=== PATIENT | male | born 1950 | race Caucasian/White ===

== ENCOUNTER 2018-10-28 19:42 | Inpatient (IN) | payer MEDICARE, OTHER ==
--- NOTE | 2018-10-28 20:10 | ED ---
Psychiatric Complaint - HPI Summary HPI Summary: This patient is a 68 year old M presenting to ED with a chief complaint of SI since today. Patient states his cousin 1 week ago. He reports wanting to jump in front of a bus. Patient lives in [place] and is here visiting. PMHx of DM, HTN, HLD on Metformin, which he forgot to bring to [place]. The patient rates the pain 0/10 in severity. Symptoms aggravated by recent stress of in family. Symptoms alleviated by nothing. Patient denies fever. - History Of Current Complaint Chief Complaint: EDSuicidal Time Seen by Provider: 10/28/18 20:03 Hx Obtained From: Patient Onset/Duration: Lasting Days - Since today, Still Present Timing: Constant Severity Initially: Mild Severity Currently: Mild Aggravating Factor(s): Recent Stress - in family Alleviating Factor(s): Nothing Associated Signs And Symptoms: Positive: Negative - Fever Has Suicidal: Reports: Thoughts, With A Plan - Jump in front of bus Recent Stressor(s): in family - Allergies/Home Medications Allergies/Adverse Reactions: Allergies Allergy/AdvReac Type Severity Reaction Status Date / Time fluphenazine Allergy Hives Verified 10/29/18 08:38 haloperidol Allergy Hives Verified 10/29/18 08:38 Home Medications: Home Medications Atorvastatin Calcium [Lipitor] 20 mg PO DAILY 10/29/18 [History Confirmed ] Benztropine TAB* [Cogentin TAB*] 1 mg PO BID 10/29/18 [History Confirmed ] Doxazosin TAB* [Cardura TAB*] 4 mg PO DAILY 10/29/18 [History Confirmed 10/29/18 ] Glimepiride 2 mg PO DAILY 10/29/18 [History Confirmed 10/29/18] OLANZapine [Zyprexa Zydis] 5 mg PO DAILY 10/29/18 [History Confirmed 10/29/18] Pantoprazole TAB * [Protonix TAB*] 40 mg PO DAILY 10/29/18 [History Confirmed ] Pioglitazone HCl 30 mg PO DAILY 10/29/18 [History Confirmed 10/29/18] Trazodone HCl 100 mg PO BEDTIME 10/29/18 [History Confirmed 10/29/18] risperiDONE [Risperidone] 3 mg PO DAILY 10/29/18 [History Confirmed 10/29/18] PMH/Surg Hx/FS Hx/Imm Hx Endocrine/Hematology History: Reports: Hx Diabetes - on metformin Cardiovascular History: Reports: Hx Hypercholesterolemia - on medication, Hx Hypertension - on medication Musculoskeletal History: Reports: Hx Back Problems - laminectomy Sensory History: Reports: Hx Contacts or Glasses - glasses for reading Denies: Hx Deafness Opthamlomology History: Reports: Hx Contacts or Glasses - glasses for reading Psychiatric History: Reports: Hx Depression, Hx Post Traumatic Stress Disorder, Hx Inpatient Treatment, Hx Schizophrenia, Hx Suicide Attempt Denies: Hx Eating Disorder, Hx of Violent Episodes Against Others - Surgical History Surgery Procedure, Year, and Place: back surgery 1972. tonsillectomy 1952 Infectious Disease History: No Infectious Disease History: Denies: Traveled Outside the [place] in Last 30 Days - Family History Known Family History: Positive: Non-Contributory - Social History Alcohol Use: None Hx Substance Use: No Substance Use Type: Reports: None Hx Tobacco Use: No Smoking Status (MU): Never Smoked Tobacco Review of Systems Negative: Fever Psychological: Other - SI All Other Systems Reviewed And Are Negative: Yes Physical Exam - Summary Physical Exam Summary: Appearance: Well-appearing, Well-nourished, lying in bed comfortable Skin: Warm, dry, no obvious rash Eyes: sclera anicteric, no conjunctival pallor ENT: mucous membranes moist Neck: deferred Respiratory: No signs of respiratory distress Cardiovascular: Appears well perfused, pulses are nml Abdomen: deferred Musculoskeletal: Moving all 4 extremities without obvious discomfort Neurological: Awake and alert, mentation is normal, speech is fluent and appropriate Psychiatric: affect is normal, does not appear anxious or depressed Triage Information Reviewed: Yes Vital Signs On Initial Exam: Initial Vitals Temp Pulse Resp BP Pulse Ox 97.5 F 75 18 161/84 97 10/28/18 19:48 10/28/18 19:48 10/28/18 19:48 10/28/18 19:48 10/28/18 19:48 Vital Signs Reviewed: Yes Diagnostics - Vital Signs Vital Signs Temp Pulse Resp BP Pulse Ox 10/28/18 19:48 97.5 F 75 18 161/84 97 - Laboratory Result Diagrams: 10/28/18 20:24 10/28/18 20:24 Lab Statement: Any lab studies that have been ordered have been reviewed, and results considered in the medical decision making process. - EKG 2028 Cardiac Rate: NL - 75 BPM EKG Rhythm: Sinus Rhythm ST Segment: Normal Ectopy: None Summary of EKG Findings: NSR at 75 BPM, P waves, QRS complex, and T waves are within normal limits, T waves and intervals are normal, no ischemic changes. This is a normal EKG. Course/Dx - Course Course Of Treatment: This patient is a 68 year old M presenting to ED with a chief complaint of SI since today. EKG at 2028 revealed NSR at 75 BPM, P waves, QRS complex, and T waves are within normal limits, T waves and intervals are normal, no ischemic changes. This is a normal EKG. Blood work revealed Hgb 13.3 , Hct 39, MPV 7.2, glucose 182. UA revealed glucose 3+. Patient is medically cleared for MHE at 2250. As patient has VA benefits, patient will be voluntarily transferred to a [facility] hospital with dx of mood disorder NOS by Dr. Herrera. Patient will be signed out to Dr. Casper Quinn from Dr. Casper العلي at 0700 on 10/29/18 at shift change pending transfer logistics. - Differential Dx/Clinical Impression Provider Diagnosis: Mood disorder Discharge - Sign-Out/Discharge Documenting (check all that apply): Sign-Out Patient Signing out patient TO: Casper Quinn Patient Received Moderate/Deep Sedation with Procedure: No - Discharge Plan Condition: Stable Disposition: PSYCHIATRIC FACILITY-[facility] - Billing Disposition and Condition Condition: STABLE Disposition: Psychiatric Facility [facility] - Attestation Statements Document Initiated by Scribe: Yes Documenting Scribe: Herrera De La Garza Provider For Whom Sergio is Documenting (Include Credential): MD Sergio Vigil Attestation: Herrera Ramos, scribed for Casper العلي MD on 10/30/18 at 0532. Scribe Documentation Reviewed: Yes Provider Attestation: The documentation as recorded by the Herrera lange accurately reflects the service I personally performed and the decisions made by , Casper العلي MD Status of Scribe Document: Viewed
[2018-10-28 20:34] LABS: ABS Eosinophils 0.2 10^3/ul (0-0.6); ABS Lymphocytes 1.6 10^3/ul (1.0-4.8); ABS Monocytes 0.6 10^3/ul (0-0.8); Eosinophil % 2.9 %; Hematocrit 39 % (42-52); Hemoglobin 13.3 g/dL (14.0-18.0); Lymphocyte % 18.4 %; Mean Corpuscular HGB Conc 35 g/dL (31-36); Mean Corpuscular Hemoglobin 29 pg (27-31); Mean Corpuscular Volume 83 fL (80-94); Mean Platelet Volume 7.2 fL (7.4-10.4); Platelet Count 237 10^3/uL (150-450); Red Blood Count 4.64 10^6 /uL (4.18-5.48); Red Cell Distribution Width 14 % (10-15); White Blood Count 8.5 10^3/uL (3.5-10.8)
[2018-10-28 20:51] LABS: ALT 48 U/L (7-52); AST 17 U/L (13-39); Albumin 4.5 g/dL (3.2-5.2); Albumin/Globulin Ratio 1.6 (1-3); Alkaline Phosphatase 67 U/L (34-104); Anion Gap 9 mmol/L (2-11); BUN/Creatinine Ratio 15.7 (8-20); Blood Urea Nitrogen 11 mg/dL (6-24); CO2 Carbon Dioxide 23 mmol/L (22-32); Chloride 105 mmol/L (101-111); EGFR African American 135.3 (>60); EGFR Non-African American 111.8 (>60); Globulin 2.8 g/dL (2-4); Glucose 182 mg/dL (70-100); Potassium 3.7 mmol/L (3.5-5.0); Sodium 137 mmol/L (135-145); Total Protein 7.3 g/dL (6.4-8.9)
[2018-10-28 20:52] LABS: Acetaminophen < 15 mcg/mL; Alcohol < 10 mg/dL (<10); Salicylate < 2.50 mg/dL (<30)
[2018-10-28 21:07] LABS: TSH (Thyroid Stimulating Horm) 3.08 mcIU/mL (0.34-5.60)
[2018-10-28 21:38] LABS: Urine Appearance Clear; Urine Bilirubin Negative (Negative); Urine Blood Negative (Negative); Urine Color Yellow; Urine Glucose 3+(>=500 mg/dL) (Negative); Urine Ketones Negative (Negative); Urine Nitrite Negative (Negative); Urine Protein Negative (Negative); Urine Specific Gravity 1.018 (1.010-1.030); Urine Urobilinogen Negative (Negative)
[2018-10-28 21:48] LABS: Urine Benzodiazepine Screen None Detected (None Detect); Urine Opiates Screen None Detected (None Detect)
[2018-10-29] MEDS ORDERED: LORazepam TAB(*) 1 MG PO ONE ×2 (00:01→08:56)
--- NOTE | 2018-10-29 07:11 | ED ---
Progress - Progress Note Progress Note: Pt is a signout from Dr. العلي at 0700 on 10/29/18 pending mental health transfer. The [facility] declined the pt so he will be admitted to [facility] with 2PC and dx of mood disorder NOS. - Consult/PCP Time Called: 22:50 Course/Dx - Course Course Of Treatment: Pt is a signout from Dr. العلي at 0700 on 10/29/18 pending mental health transfer. As of 144, the [facility] declined the pt so he will be admitted to [facility] with 2PC and dx of mood disorder NOS. - Diagnoses Provider Diagnoses: Mood disorder Discharge - Sign-Out/Discharge Documenting (check all that apply): Patient Departure, Receiving Sign-Out Receiving patient FROM: Casper العلي - Discharge Plan Condition: Stable Disposition: PSYCHIATRIC FACILITY-[facility] - Billing Disposition and Condition Condition: STABLE Disposition: Psychiatric Facility [facility] - Attestation Statements Document Initiated by Scribe: Yes Documenting Scribe: Radha Klein Provider For Whom Salomonibe is Documenting (Include Credential): Casper Quinn MD. Scribe Attestation: Radha Ramos, mary kateed for Casper Quinn MD. on 10/29/18 at 1742. Scribe Documentation Reviewed: Yes Provider Attestation: The documentation as recorded by the Radha lange accurately reflects the service I personally performed and the decisions made by Casper beavers MD. Status of Scribe Document: Viewed
[2018-10-29] MEDS ORDERED: Al Hydrox/Mg Hydrox/Simet LIQ* 30 ML UDC PO PRN (16:21)
[2018-10-29] MEDS: Acetaminophen TAB* 325 MG PO PRN (19:46)
[2018-10-29] MEDS: traZODone TAB* 100 MG PO SCH (20:11)
[2018-10-29] MEDS: Benztropine TAB* 1 MG PO SCH (20:12)
[2018-10-30] MEDS ORDERED: risperiDONE TAB* 1 MG ONE (02:23)
[2018-10-30] MEDS ORDERED: LORazepam TAB(*) 1 MG ONE (02:23)
[2018-10-30] MEDS ORDERED: LORazepam TAB(*) 1 MG PO ONE (03:00)
[2018-10-30] MEDS ORDERED: risperiDONE TAB* 1 MG PO ONE (03:00)
[2018-10-30] MEDS: Vitamin THERAPEUTIC TAB PO SCH (10:16)
[2018-10-30] MEDS: Doxazosin TAB* 2 MG PO SCH (10:16)
[2018-10-30] MEDS: Pantoprazole TAB * 40 MG TAB PO SCH (10:16)
[2018-10-30] MEDS: risperiDONE TAB* 2 MG PO SCH (10:16)
[2018-10-30] MEDS: metFORMIN* 500 MG TAB PO SCH (10:16)
[2018-10-30] MEDS: OLANzapine TAB*ODT* 5 MG PO SCH (10:17)
[2018-10-30] MEDS: Benztropine TAB* 1 MG PO SCH ×2 (10:17→20:33)
[2018-10-30] MEDS: CMC:Glimepiride (NF) 2 MG TAB PO SCH (10:17)
[2018-10-30] MEDS: Atorvastatin* 20 MG TAB PO SCH (10:17)
[2018-10-30] MEDS: Lisinopril TAB* 10 MG PO SCH (10:17)
[2018-10-30] MEDS: Pioglitazone TAB* 30 MG PO SCH (10:18)
[2018-10-30] MEDS: risperiDONE TAB* 3 MG PO SCH (13:06)
[2018-10-30] MEDS: Acetaminophen TAB* 325 MG PO PRN ×2 (18:32→23:45)
--- NOTE | 2018-10-30 20:06 | HP ---
PSYCHIATRIC HISTORY AND PHYSICAL: DATE OF ADMISSION: 10/29/18 JUSTIFICATION FOR ADMISSION: The patient is in need of 24-hour supervision and care secondary to suicidal ideations. CHIEF COMPLAINT: "The VA is not doing nothing for me." HISTORY OF PRESENT ILLNESS: The patient is a 68-year-old single [facility] [place] , who is [place] through the [place], who arrives all the way from his rented apartment in [place], [place] which is close to [place], seeking hospitalization for what he claims to be auditory hallucinations telling him to hang himself. The patient relates that he gets his services through the [facility] and that he is supposed to have visiting nurses and packed medication delivery services, but he claims that the VA is not doing anything for him. He states that he is fed up living in [place] and he wants new housing in the [facility]. He states that in order to get himself here he took a bus. When he was in the emergency room, we attempted several times to get him transferred [facility] a [facility]; however, all 3 local [facility] responded by saying that they would not accept the patient because he has a history of overutilizing inpatient resources. This was corroborated in the most recent discharge summary for Mr. Fulton which was dated 08/23/14 by psychiatrist, Dr. Job Lacey, who indicated at that time that Mr. Fulton had been going from hospital to hospital, seeking attention. He felt that the patient warranted a diagnosis of malingering. At this time, given the patient's desire for housing, the patient's motivation appears to be secondary gain. PAST PSYCHIATRIC HISTORY: The patient has a history of schizophrenia since 1968 when he was in the [employer]. He is 100% service connected for both PTSD and schizophrenia. He states that he experienced combat trauma while serving in [place]. He does report 2 suicide attempts in the past, one was 8 years ago by cutting himself and one was 15 years ago by overdosing on Demerol. In the past , he has taken Seroquel, Risperdal, and Risperdal Consta. Most recently, it appears that his medications include Risperdal, olanzapine, and trazodone. He denies ownership of firearms. PAST SUBSTANCE ABUSE HISTORY: He states that he is a nonsmoker. He does not drink or use illicit drugs. PAST MEDICAL HISTORY: Significant for high blood pressure, diabetes, hypertension, hyperlipidemia, gastroesophageal reflux disorder. CURRENT MEDICATIONS: Include: 1. Risperdal 5 mg daily. 2. Glucophage 500 mg daily. 3. Trazodone 100 mg nightly. 4. Pioglitazone 30 mg daily. 5. Protonix 40 mg daily. 6. Zyprexa 5 mg daily. 7. Lisinopril 20 mg daily. 8. Glimepiride 2 mg daily. 9. Doxazosin 4 mg daily. 10. Cogentin 1 mg b.i.d. 11. Lipitor 20 mg daily. ALLERGIES: Include FLUPHENAZINE and HALOPERIDOL. FAMILY HISTORY: His mother had an unspecified mental illness and committed suicide when the patient was 17 years old. He has no further family contact. SOCIAL HISTORY: The patient was born and raised in the [facility]. He joined the [employer] at age 17 and dropped out of high school, but got his GED. He apparently had his first break of psychosis when he was in the service. He has never been . He does not have any children. His parents are and he lives alone in an apartment in [place], which is [place] [facility]. REVIEW OF SYSTEMS: The patient denies headache or double vision. He denies cough, sore throat, chest pain, difficulty breathing. Denies abdominal pain, nausea, vomiting, diarrhea, or constipation. He denies difficulty ambulating, enlarged lymph nodes, fevers, rashes, or changes in weight. PHYSICAL EXAMINATION VITAL SIGNS: Blood pressure 150/93, heart rate 89, respiratory rate 18, temperature is 97.4, oxygen saturations are 96% on room air. HEENT: Head is normocephalic, atraumatic. NECK: Supple. CHEST: Clear to auscultation bilaterally. CARDIAC: Exam reveals normal heart sounds. ABDOMEN: Soft and nontender. MUSCULOSKELETAL: Exam reveals no sign of edema. NEUROLOGICAL: He is grossly intact with no focal deficits. SKIN: Warm and dry. DIAGNOSTIC STUDIES/LAB DATA: Labs: CBC demonstrates anemia with decreased hemoglobin at 13.3, decreased hematocrit at 39. Complete metabolic panel demonstrates glucose which is elevated at 182. TSH normal at 3.08. Urinalysis reveals 3+ glucose. Urine drug screen is negative for all substances tested. MENTAL STATUS EXAM: The patient is an aging, overweight white-haired male who is in scrubs. He is poorly groomed with food debris on his chin. He is overweight, hard of hearing, and has difficulty seeing and stares with squinted eyes at this observer. Speech has a loud tone. Mood appears to be euthymic with a full affect. Thought process, linear and goal directed. Thought content is significant for his desire to seek new housing through the hospital. He is currently denying suicidal or homicidal ideations. He denies auditory or visual hallucinations at this time. Cognitively, he is awake and alert with what would appear to be a low-average intellect by virtue of his simplistic vocabulary. DIAGNOSES: [place] I: 1. Factitious disorder. 2. Schizophrenia. 3. Posttraumatic stress disorder. [place] II: Deferred. IMPRESSION: The patient is a 68-year-old single, never , white, [employer] [place] with a history of schizophrenia and posttraumatic stress disorder, who has apparently traveled by bus to our area to seek fdc and new housing. He was claiming suicidal ideations and auditory hallucinations, but we do not see him responding to internal stimuli and his affect is bright and full. It would appear that this is a factitious disorder or perhaps malingering given the secondary gain that he is seeking by receiving housing in the new community. PLAN: The patient is admitted to the adult behavioral health unit, where he was placed on q.15-minute checks for his own safety. We will [facility] [place] for further collateral information. I think it is in his interests to return to the [facility] where he has all his services, and we will attempt to confirm this through the [facility] system. We hope to keep this hospitalization brief as it appears that the patient is trying to take advantage of inappropriate inpatient hospitalization to get other needs met. [id number]/[facility] #: [id number] GARY
[2018-10-30] MEDS: traZODone TAB* 100 MG PO SCH (20:33)
[2018-10-31] MEDS: Doxazosin TAB* 2 MG PO SCH (08:47)
[2018-10-31] MEDS: Lisinopril TAB* 10 MG PO SCH (08:48)
[2018-10-31] MEDS: Atorvastatin* 20 MG TAB PO SCH (08:48)
[2018-10-31] MEDS: OLANzapine TAB*ODT* 5 MG PO SCH (08:49)
[2018-10-31] MEDS: metFORMIN* 500 MG TAB PO SCH (08:49)
[2018-10-31] MEDS: risperiDONE TAB* 2 MG PO SCH (08:49)
[2018-10-31] MEDS: Pantoprazole TAB * 40 MG TAB PO SCH (08:49)
[2018-10-31] MEDS: Vitamin THERAPEUTIC TAB PO SCH (08:49)
[2018-10-31] MEDS: Pioglitazone TAB* 30 MG PO SCH (08:50)
[2018-10-31] MEDS: Benztropine TAB* 1 MG PO SCH ×2 (08:50→20:48)
[2018-10-31] MEDS: CMC:Glimepiride (NF) 2 MG TAB PO SCH (08:50)
--- NOTE | 2018-10-31 11:13 | PN ---
Subjective - Subjective Date of Service: 10/31/18 Service Type: [id number] Hosp care 15 min low complexity Subjective: Daysi continues to clamor for help with housing. "Nobody is helping me here. Just discharge me and send me to the detention. They'll help me find a place." It is explained to Mr. Olivera that the [place] has not returned our phone calls to coordinate care and further services and that it would not be appropriate to discharge him until we have worked out a safe discharge plan. "Those people weren't doing anything for me. They didn't come to the house like they said they would. I didn't have any medicine. I didn't have any food. I'm through with them people." He denies SI but states that he is still hearing voices. He does not appear to be responding to internal stimuli. Objective - General Observations Appearance: Neat Appears Stated Age: Yes Stature: Overweight Posture: WNL Eye Contact: Average Behavior/Activity: WNL - Interaction Observations Attitude Towards Examiner: Cooperative Stated Mood: Euthymic Affect: Full Speech Pattern/Tone: Appropriate Thought Process: Goal Directed Perception: WNL Thought Content: WNL Hallucination Type: Auditory Delusion Type: None - Cognitive Function Orientation: A&O x 4 Level of Consciousness: Awake, Alert, Appropriate Cognition: WNL Estimated Intelligence: Borderline Range Insight: WNL Judgment Within Normal Limits: Yes - Medication Compliance Cooperative with Inpatient Medication Regimen: Yes - Group Participation Participates in Group Activities: Yes Assessment - Assessment Merits Inpatient Hospitalization: Pending Safe DC Plan Inpatient DSM-V Dx: Z76.5 Clinical Impression: 68 y.o. single, never-, white male [place] , 100% service connected for schizophrenia and PTSD who took a bus to [place] from his home [place], [place] seeking voluntary hospitalization for command AH reportedly telling him to kill himself. The patient subsequently admits that his main motivation for coming here is to procure new housing here in the [place] area. BSU: Problem List - Patient Problems (1) Malingering Current Visit: Yes Status: Acute Priority: Medium Code(s): Z76.5 - MALINGERER [CONSCIOUS SIMULATION] SNOMED Code(s): 164595143 Plan - Plan Treatment Plan: Name: DAYSI OLIVERA Birthdate: 1950 [id number] The patient has been resumed on his outpatient regimen, including risperidone 5mg PO qam and trazodone 100mg PO qhs. We await collateral contact with the [facility] system to coordinate discharge planning. Continued Medication Management: Continue Outpt Medication Medications: Current Medications Acetaminophen (Tylenol Tab*) 650 mg PO Q4H PRN PRN Reason: PAIN or TEMP > 101 F Last Admin: 10/30/18 23:45 Dose: 650 mg Al Hydrox/Mg Hydrox/Simethicone (Maalox Plus*) 30 ml PO Q4H PRN PRN Reason: INDIGESTION Atorvastatin Calcium (Lipitor*) 20 mg PO DAILY [facility] Last Admin: 10/31/18 08:48 Dose: 20 mg Benztropine Mesylate (Cogentin Tab*) 1 mg PO BID [facility] Last Admin: 10/31/18 08:50 Dose: 1 mg Doxazosin Mesylate (Cardura Tab*) 4 mg PO DAILY [facility] Last Admin: 10/31/18 08:47 Dose: 4 mg Glimepiride (Glimepiride (Nf)) 2 mg PO DAILY [facility] Last Admin: 10/31/18 08:50 Dose: 2 mg Lisinopril (Prinivil Tab*) 20 mg PO DAILY [facility] Last Admin: 10/31/18 08:48 Dose: 20 mg Metformin HCl (Glucophage*) 500 mg PO DAILY [facility] Last Admin: 10/31/18 08:49 Dose: 500 mg Multivitamins (Theragran Tab*) 1 tab PO DAILY [facility] Last Admin: 10/31/18 08:49 Dose: 1 tab Olanzapine (Zyprexa * Tab Odt) 5 mg PO DAILY [facility] Last Admin: 10/31/18 08:49 Dose: 5 mg Pantoprazole Sodium (Protonix Tab*) 40 mg PO DAILY [facility] Last Admin: 10/31/18 08:49 Dose: 40 mg Pioglitazone HCl (Actos Tab*) 30 mg PO DAILY [facility] Last Admin: 10/31/18 08:50 Dose: 30 mg Risperidone (Risperdal*) 2 mg PO DAILY [facility] Last Admin: 10/31/18 08:49 Dose: 2 mg Risperidone (Risperdal*) 3 mg PO 1200 [facility] Last Admin: 10/30/18 13:06 Dose: 3 mg Trazodone HCl (Desyrel Tab*) 100 mg PO BEDTIME [facility] Last Admin: 10/30/18 20:33 Dose: 100 mg - Discharge Plan Discharge Plan: Outpatient Follow Up Outpatient Program: [facility]
[2018-10-31] MEDS: risperiDONE TAB* 3 MG PO SCH (14:13)
[2018-10-31] MEDS: traZODone TAB* 100 MG PO SCH (20:48)
[2018-10-31] MEDS: Acetaminophen TAB* 325 MG PO PRN (23:38)
[2018-11-01 08:47] VITALS: BP 156/85
[2018-11-01] MEDS: Doxazosin TAB* 2 MG PO SCH (08:47)
[2018-11-01] MEDS: Pioglitazone TAB* 30 MG PO SCH (08:47)
[2018-11-01] MEDS: CMC:Glimepiride (NF) 2 MG TAB PO SCH (08:47)
[2018-11-01] MEDS: Benztropine TAB* 1 MG PO SCH (08:51)
[2018-11-01] MEDS: metFORMIN* 500 MG TAB PO SCH (08:51)
[2018-11-01] MEDS: risperiDONE TAB* 2 MG PO SCH (08:51)
[2018-11-01] MEDS: Vitamin THERAPEUTIC TAB PO SCH (08:51)
[2018-11-01] MEDS: Pantoprazole TAB * 40 MG TAB PO SCH (08:51)
[2018-11-01] MEDS: Atorvastatin* 20 MG TAB PO SCH (08:52)
[2018-11-01] MEDS: Lisinopril TAB* 10 MG PO SCH (08:52)
[2018-11-01] MEDS: OLANzapine TAB*ODT* 5 MG PO SCH (08:53)
[2018-11-01] MEDS: risperiDONE TAB* 3 MG PO SCH (11:39)
--- NOTE | 2018-11-01 13:00 | DS ---
DISCHARGE SUMMARY: DATE OF ADMISSION: 10/29/18 DATE OF DISCHARGE: 11/01/18 DISCHARGE DIAGNOSES: Charlotte I: Malingering, schizophrenia by history, posttraumatic stress disorder by history. Charlotte II: Deferred. CONDITION AT THE TIME OF DISCHARGE: Stable. The patient is denying suicidal ideations and he is agr eeable to taking a bus home to his apartment in [place], [place]. He is aware that [facility] for both primary and psychiatric care at the [facility] established for , 11/07/18, and he expresses a willingness to follow up with this. He is requesting that his me dications be sent to the [facility] in [place], [place]. While here, he has been safe on all checks and we have not observed him responding to internal stimuli. MENTAL STATUS EXAM AT THE TIME OF DISCHARGE: The patient is an aging overweight white-haired Caucasi an male who is dressed in street clothing. He is fairly well- groomed at this time. He is hard of h earing and has difficulty seeing, staring with squinted eyes at this observer. Speech has a loud ton e. Mood appears to be euthymic with full affect. Thought process is linear and goal directed. Thou ght content is significant for his desire to be discharged from the hospital. He is currently denyin g suicidal or homicidal ideations. He denies auditory or visual hallucinations. Cognitively, he is awake and alert with what would appear to be a low-average intellect by virtue of his simplistic voca bulary. DISCHARGE INSTRUCTIONS: To the patient are as follows: Part A: Medications: The patient is on: 1. Trazodone 100 mg at bedtime. 2. Risperdal 2 mg in the morning and 3 mg at noon. 3. Metformin 500 mg daily. 4. Actos 30 mg daily. 5. Protonix 40 mg daily. 6. Olanzapine 5 mg daily. 7. Lisinopril 20 mg p.o. daily. 8. Glimepiride 2 mg p.o. daily. 9. Doxazosin 4 mg p.o. daily. 10. Cogentin 1 mg p.o. b.i.d. 11. Lipitor 20 mg p.o. daily. Please note that the patient is on more than 1 antipsychotic medication including risperidone and beck nzapine. This is due to the fact that the patient has documented history of at least 3 failed trials of antipsychotic monotherapy including past monotherapy experiences with fluphenazine, haloperidol, risperidone, and olanzapine. Part B: Diet is a diabetic diet. Part C: Activities as tolerated. The patient is a nonsmoker. There are no laboratory or diagnostic studies pending at the time of discharge. Part D: Follow up care. The patient will follow up with his psychiatrist, Dr. George, at the [facility]. This appointment is for 11/07/18, at 10:30 a.m. Later that afternoon, he has an appointment with his primary care provider at the same clinic. Part E: Substance abuse followup is nonapplicable. Part F: Disposition: The patient is being discharged to his own apartment in [facility]. He is familiar with the bus system and is being sent to the bus stop on [address] in [facility]. HOSPITAL COURSE: Part A: Reason for Admission: The patient is a 68-year-old, single, [place] who [facility] for history of schizophrenia and PTSD, arriving all t he way from his rented apartment in [place], [place], which is close to [place], seeking ho spitalization for what he claimed to be auditory hallucinations telling him to hang himself. The pat ient relates that he gets his services through the [facility] and that he is supposed to have visiti ng nursing as well as packed medication delivery services. However, he claims that the [facility] is not doi [facility] anything for him. He states that he is set up with living in [place] and wants new housing in the [facility]. He states that in order to get himself here, he took a bus from his own communi ty. When he was in the emergency room, we attempted several times to get him transferred to a [facility]; however, all 3 [facility] responded by saying that they would not accept the patien t because he has a history of overutilizing inpatient resources. This was corroborated in the most r ecent discharge summary for Mr. Fulton which was dated 08/23/14 by psychiatrist, Dr. Job Zhou-To asher, who indicated that at the time Mr. Fulton had been going from hospital to hospital seeking att ention. He felt that the patient warranted a diagnosis of malingering. At this time, given the patie nt's desire for housing, the patient's motivation appears to be for secondary gain. Part B: Psychiatric Treatment Rendered: The patient was admitted to the [facility] where he was placed on q.15 minute checks for his own safety. Although he claimed at the beginning that he was having auditory hallucinations, this could not be corroborated and at no point did he ap pear to be responding to internal stimuli. Instead, he continued to voice concerns over secondary ga in issues, notably his desire to be rehoused in the [facility]. We acknowledged from the beginn ing that this is likely a malingering situation; however, due to his vulnerability being a service co nnected, disabled [place] , who is hard of seeing and also hard of hearing, we did not feel th at it was ethical to discharge him without getting further information from the MD. Finally, on , 10/31/18, we were able to connect with a immigration case worker named Diana Deal who has been working at length with Mr. Fulton. She reported to us that the patient has been "hospital shopping," [facility]. She indicated that he had primary care and psychiatric followups on 11/07/18. The patient was [facility] with [facility] and acknowledged his need to make these appointments. He changed his desire disposition at that [facility] and was no longer seeking local housing, but instead stated that [facility]. He denied suicidal ideations on the date of discharge and appears quite eager to ret urn home. We are getting him a cab to [place] where he can purchase a ticket at the [facility]. He did request that we release his medications to the [facility] store on [facility] in [place], [place]. At this time, we do not feel there would be any further benefit to Mr. Fulton staying here and we feel that he is safe for discharge with followup through the [facility] ysfrankm. [id number]/[facility] #: [id number]
== END 2018-11-01 11:45 | disposition home or self-care (01) | DRG 951 ==
LOC: ED 19:42 → BSU 10-29 14:59
PROVIDERS: ADMIT Psychiatry & Neurology Psychiatry; ATTEND Psychiatry & Neurology Psychiatry
DX: Z76.5 Malingerer [conscious simulation] (principal); R45.851 Suicidal ideations; F20.9 Schizophrenia, unspecified; F43.10 Post-traumatic stress disorder, unspecified; E66.3 Overweight; E11.9 Type 2 diabetes mellitus without complications; I10 Essential (primary) hypertension; E78.00 Pure hypercholesterolemia, unspecified; F32.9 Major depressive disorder, single episode, unspecified; E78.5 Hyperlipidemia, unspecified; K21.9 Gastro-esophageal reflux disease without esophagitis; Z88.8 Allergy status to other drugs, medicaments and biological substances; Z68.32 Body mass index [BMI] 32.0-32.9, adult; Z79.84 Long term (current) use of oral hypoglycemic drugs; Z91.5 Personal history of self-harm; Z81.8 Family history of other mental and behavioral disorders
CPT/HCPCS: 36415; 80053; 80307; 80320; 80329; 81003; 84443; 85025; 93005; 99222; 99231; 99238; 99285; A9270-GY; G0480